=== PATIENT | female | born 1970 | race Caucasian/White ===

== ENCOUNTER → 2016-09-02 | Outpatient (CLI) | payer OTHER ==
[~2016-09-02] MED LIST: BARIUM SULFATE 60% 355 ML SUSP PO ONE; BARIUM SULFATE 98% 135 ML SUSP PO ONE
--- NOTE | 2016-09-02 12:14 | RAD ---
Esophagram, 09/02/2016: History: Dysphasia and coughing after eating 3.4 minutes of fluoroscopy time was utilized for this exam. 11 static and dynamic fluoroscopic sequences were recorded. The patient denies previous esophageal or gastric surgery. The swallowing mechanism is intact. The esophageal peristalsis is normal. No obstructing esophageal lesion is seen. There is a small hiatal hernia. No gastroesophageal reflux was demonstrated. IMPRESSION: 1. Small hiatal hernia. 2. No other significant esophageal abnormality is detected.
== END | disposition home or self-care (01) ==
LOC: RAD 10:26
PROVIDERS: ATTEND Internal Medicine Gastroenterology
DX: K44.9 Diaphragmatic hernia without obstruction or gangrene (principal); R05 Cough; R47.02 Dysphasia
CPT/HCPCS: 74220